=== PATIENT | female | born 2000 | race Caucasian/White ===

== ENCOUNTER 2019-08-31 16:05 | Emergency (ER) | payer BC ==
--- NOTE | 2019-08-31 16:32 | ED ---
Upper Extremity Pain - HPI Summary HPI Summary: 18 yo female presents to [facility] with LEFT thumb pain. She tells me that on she was playing basketball and went up for a rebound when she jammed her left thumb. Has had pain in her MCP since that time. She made a make-shift splint at home and has been using this and icing and taking ibuprofen with no relief. She is ambidextrous. Denies numbness or tingling. - History of Current Complaint Chief Complaint: EDExtremityUpper Stated Complaint: RIGHT HAND INJURY PER PT Time Seen by Provider: 08/31/19 16:31 Hx Obtained From: Patient Severity Initially: Moderate Severity Currently: Moderate - Allergies/Home Medications Allergies/Adverse Reactions: Allergies Allergy/AdvReac Type Severity Reaction Status Date / Time No Known Allergies Allergy Verified 08/31/19 16:08 PMH/Surg Hx/FS Hx/Imm Hx Endocrine/Hematology History: Denies: Hx Diabetes Cardiovascular History: Denies: Hx Atrial Fibrillation, Hx Myocardial Infarction Respiratory History: Denies: Hx Asthma, Hx Chronic Obstructive Pulmonary Disease (COPD) Neurological History: Denies: Hx CVA, Hx Migraine Psychiatric History: Denies: Hx Anxiety - Surgical History Surgical History: None Infectious Disease History: No Infectious Disease History: Denies: Traveled Outside the [place] in Last 30 Days - Family History Known Family History: Positive: Non-Contributory - Social History Occupation: Student Lives: Dormitory/Roommates Alcohol Use: None Substance Use Type: Reports: None Smoking Status (MU): Never Smoked Tobacco Review of Systems Constitutional: Negative Cardiovascular: Negative Respiratory: Negative Musculoskeletal: Other - Left thumb pain Skin: Negative Neurological: Negative Psychological: Normal All Other Systems Reviewed And Are Negative: No Physical Exam - Summary Physical Exam Summary: GENERAL: NAD. WDWN. No pain distress. SKIN: No rashes, sores, lesions, or open wounds. CHEST: No accessory muscle use. Breathing comfortably and in no distress. CV: Pulses intact radial and ulnar. Cap refill <2seconds MSK: LEFT THUMB: MCP radial aspect with mild TTP. Pain with opposition. Strength 5/5 including community pharmacist strength. No edema or obvious bony deformities. No snuffbox tenderness. NEURO: Alert. Sensations intact hand and all fingers. PSYCH: Age appropriate behavior. Triage Information Reviewed: Yes Vital Signs On Initial Exam: Initial Vitals Temp Pulse Resp BP Pulse Ox 96.6 F 75 18 137/76 99 08/31/19 16:07 08/31/19 16:07 08/31/19 16:07 08/31/19 16:07 08/31/19 16:07 Vital Signs Reviewed: Yes Procedures - Sedation Patient Received Moderate/Deep Sedation with Procedure: No Diagnostics - Vital Signs Vital Signs Temp Pulse Resp BP Pulse Ox 08/31/19 16:07 96.6 F 75 18 137/76 99 - Laboratory Lab Statement: Any lab studies that have been ordered have been reviewed, and results considered in the medical decision making process. - Radiology Thumb XR Radiology Interpretation Completed By: ED Physician Summary of Radiographic Findings: No fx. Reviewed with Dr. Bass Course/Dx - Course Course Of Treatment: XR wet read negative. Suspect tendon/ligament injury. Pt was placed in a thumb spica brace and advised to continue rest, ice, and to f/u with Orthopedics within 1 week for a recheck if symptoms have not resolved. - Diagnoses Provider Diagnoses: Thumb pain Discharge ED - Sign-Out/Discharge Documenting (check all that apply): Patient Departure - Discharge Plan Condition: Stable Disposition: HOME Patient Education Materials: [facility] (ED) Referrals: No Primary Care Phys,NOPCP [Primary Care Provider] - Kalen Chaudhari MD [Medical Doctor] - 3 Days Additional Instructions: If you develop a fever, shortness of breath, chest pain, new or worsening symptoms - please call your PCP or go to the ED immediately. 1) Rest, Ice, and use the thumb splint as much as possible 2) The preliminary read of your X-ray appears normal without fracture. 3) I recommend that you call Orthopedics to schedule an appointment for later this week for a recheck - Billing Disposition and Condition Condition: STABLE Disposition: Home
[2019-08-31 18:16] VITALS: BP 118/69
== END 2019-08-31 18:16 | disposition home or self-care (01) ==
LOC: ED 16:05
DX: M79.645 Pain in left finger(s) (principal)
CPT/HCPCS: 99281